=== PATIENT | male | born 1990 | race African-American/Black ===

== ENCOUNTER 2017-01-16 11:36 | Emergency (ER) | payer OTHER ==
[2017-01-16] MEDS ORDERED: ONDANSETRON 4 MG TAB.RAPDIS PO ONE (11:57)
--- NOTE | 2017-01-16 11:59 | ER Document Report ---
ED General - General Chief Complaint: Psych Problem Stated Complaint: NAUSEA Time Seen by Provider: 01/16/17 11:52 Mode of Arrival: Medic Information source: Patient, Law Enforcement Notes: 26-year-old male with history of undiagnosed depression presents with concerns of taking half a bottle of Motrin 200 mg tablets last night around 11 PM. Patient notes he was also drinking last night. Patient admits to hurt himself TRAVEL OUTSIDE OF THE U.S. IN LAST 30 DAYS: No - HPI Onset: Yesterday Onset/Duration: Sudden Quality of pain: No pain Severity: Mild Pain Level: Denies Associated symptoms: Nausea, Vomiting Exacerbated by: Denies Relieved by: Denies Similar symptoms previously: No Recently seen / treated by doctor: No - Related Data Allergies/Adverse Reactions: No Known Allergies Allergy (Verified 01/16/17 11:44) Past Medical History - Social History Smoking Status: Never Smoker Cigarette use (# per day): No Chew tobacco use (# tins/day): No Smoking Education Provided: No Frequency of alcohol use: Occasional Drug Abuse: None Family History: Reviewed & Not Pertinent Patient has suicidal ideation: Yes Patient has homicidal ideation: No Renal/ Medical History: Denies: Hx Peritoneal Dialysis Past Surgical History: Reports: Hx Orthopedic Surgery - Immunizations Hx Diphtheria, Pertussis, Tetanus Vaccination: No Review of Systems - Review of Systems Notes: PHYSICAL EXAMINATION: GENERAL: Well-appearing, well-nourished and in no acute distress. HEAD: Atraumatic, normocephalic. EYES: Pupils equal round and reactive to light, extraocular movements intact, sclera anicteric, conjunctiva are normal. ENT: Nares patent, oropharynx clear without exudates. Moist mucous membranes. NECK: Normal range of motion, supple without lymphadenopathy LUNGS: Breath sounds clear to auscultation bilaterally and equal. No wheezes rales or rhonchi. HEART: Regular rate and rhythm without murmurs ABDOMEN: Soft, nontender, nondistended abdomen. No guarding, no rebound. No masses appreciated. Musculoskeletal: Normal range of motion, no pitting or edema. No cyanosis. NEUROLOGICAL: Cranial nerves grossly intact. Normal speech, normal gait. Normal sensory, motor exams PSYCH: Normal mood, normal affect. SKIN: Warm, Dry, normal turgor, no rashes or lesions noted. Course - Re-evaluation Re-evalutation: 01/16/17 11:59 Patient initially stated was Tylenol, however on evaluation by nurse it appears to be ibuprofen. Lab work is pending none the less Patient will be held for mental health evaluation and is otherwise stable Discharge - Discharge Clinical Impression: Alcohol abuse Drug overdose Qualifiers: Encounter type: initial encounter Injury intent: intentional self-harm Qualified Code(s): T50.902A - Poisoning by unspecified drugs, medicaments and biological substances, intentional self-harm, initial encounter Depression Qualifiers: Depression Type: unspecified Qualified Code(s): F32.9 - Major depressive disorder, single episode, unspecified Condition: Stable Disposition: PSYCH HOSP/UNIT
[2017-01-16 12:44] LABS: HEMATOCRIT 49.4 % (37.9-51.0); HEMOGLOBIN 16.8 g/dL (13.5-17.0); MEAN CORPUSCULAR HEMOGLOBIN 29.8 pg (27.0-33.4); MEAN CORPUSCULAR HGB CONC 34.1 g/dL (32.0-36.0); MEAN CORPUSCULAR VOLUME 88 fl (80-97); RED BLOOD COUNT 5.65 10^6/uL (4.35-5.55); RED CELL DISTRIBUTION WIDTH 12.6 % (11.5-14.0); WHITE BLOOD COUNT 11.5 10^3/uL (4.0-10.5)
[2017-01-16 12:56] LABS: APPEARANCE,URINE CLEAR; BILIRUBIN,URINE NEGATIVE (NEGATIVE); GLUCOSE, URINE NEGATIVE (NEGATIVE); KETONES,URINE TRACE mg/dL (NEGATIVE); LEUKOCYTE ESTERASE,URINE NEGATIVE (NEGATIVE); NITRITE,URINE NEGATIVE (NEGATIVE); PROTEIN,URINE 30 mg/dL (NEGATIVE); URINE SPECIFIC GRAVITY 1.019; UROBILINOGEN,URINE NEGATIVE mg/dL (<2.0)
[2017-01-16 12:57] LABS: ALANINE AMINOTRANSFERASE 36 U/L (21-72); ALBUMIN 4.8 g/dL (3.5-5.0); ALCOHOL < 10 mg/dL (NONE DETECTED); ALKALINE PHOSPHATASE 108 U/L (38-126); ASPARTATE AMINO TRANSFERASE 31 U/L (17-59); BILIRUBIN,DIRECT 0.3 mg/dL (0.0-0.4); BILIRUBIN,TOTAL 0.4 mg/dL (0.2-1.3); BLOOD UREA NITROGEN 12 mg/dL (7-20); CALCIUM 9.9 mg/dL (8.4-10.2); CARBON DIOXIDE 22 mmol/L (22-30); CHLORIDE 103 mmol/L (98-107); CREATININE RESULT 1.66 mg/dL (0.52-1.25); GLUCOSE 126 mg/dL (75-110); POTASSIUM 4.9 mmol/L (3.6-5.0); SODIUM 144.5 mmol/L (137-145); TOTAL PROTEIN 8.6 g/dL (6.3-8.2)
[2017-01-16 12:58] LABS: ANION GAP 20 (5-19)
--- NOTE | 2017-01-16 13:02 | EKG REPORT ---
SEVERITY:- BORDERLINE ECG - SINUS BRADYCARDIA BORDERLINE T ABNORMALITIES, INFERIOR LEADS : Confirmed by: Beth Acosta 16-Jan-2017 13:01:53
[2017-01-16 13:06] LABS: URINE BARBITURATES SCREEN NEGATIVE; URINE METHADONE SCREEN NEGATIVE; URINE OPIATES LOW NEGATIVE; URINE PHENCYCLIDINE SCREEN NEGATIVE
[2017-01-16] MEDS ORDERED: NORMAL SALINE 1000 ML 1,000 ML IV ONE (13:08)
[2017-01-16 13:31] LABS: BAND NEUTROPHILS % (MANUAL) 3 % (3-5); BASOPHILS % (MANUAL) 0 % (0-2); EOSINOPHILS % (MANUAL) 0 % (0-6); LYMPHOCYTES % (MANUAL) 3 % (13-45); TOTAL CELLS COUNTED 100
[2017-01-16 13:32] LABS: RBC MORPHOLOGY COMMENT NORMO-CYTIC/CHROMIC
--- NOTE | 2017-01-16 16:39 | PSYCHOLOGICAL NOTE ---
Psych Note - Psych Note Psych Note: 26-year-old male with history of undiagnosed depression presents with concerns of taking half a bottle of Motrin 200 mg tablets last night around 11 PM. Patient notes he was also drinking last night. Patient admits to hurt himself Patient disclosed that he is from [place] and came down here yesterday to see his friend. He continued disclosed that [facility] [place]. Patient disclosed that he took ibuprofen but does not know the amount. Patient is unable to identify a trigger stating "I was upset about everything." He continued disclosed that he does not talk about his emotions so when something "minor" occurs at all his treatment once. He disclosed that he was arguing with his girlfriend last night. She continue disclosed that after taking the pills he ended up breaking his cell phone. Patient denies any psychiatric history but states that his mother and ex-girlfriend told him he should see a therapist. He discloses "my mom says it's not normal however feeling and I should talk to someone." He continued disclosed that he was going to head back to [place] today. When asked if he still wanted to hurt himself he stated "I don't know..... Probably not.... It's just too much work." Patient is alert and orientated to person, place, time and circumstance. Mood is dysphoric with flat affect. Patient endorses suicidal and homicidal ideation. Patient denies auditory and visual hallucinations; patient is not demonstrating behaviour what would be congruent to responding to internal stimuli. No delusions are noted. Thought process is organized and linear. Eye contact was well maintained. Intellectual abilities appear to be within average range. Attention and concentration is good. Insight, judgment, and impulse control is poor. 311 (32.9) unspecified depressive disorder Impression\\plan: Patient is recommended for IVC. Patient admits to intentionally taking ibuprofen at attempted suicide. Patient is currently in [place] visiting. Patient states that he would "probably not" attempt suicide again because it is "too much work." Patient is demonstrating severe depression and with statement of suicide being too much work there is concern the patient would become actively suicidal once treatment begins for his depression. There is also concern the patient isolated himself from his support network immediately before attempting suicide. Patient is recommended for inpatient treatment. Dr. Ji was consulted on the care and management of this patient; attending physician is in agreement with recommendations and disposition.
--- NOTE | 2017-01-17 10:08 | ER Document Report ---
Doctor's Note Notes: 01/17/17 10:08 Lab work vital signs have been reviewed. At this time patient is currently stable with no overnight events requiring no intervention at this time. Patient stable for transfer or other disposition
[2017-01-17] MEDS ORDERED: CITALOPRAM HYDROBROMIDE 20 MG TABLET PO SCH (14:00)
--- NOTE | 2017-01-17 16:36 | PSYCHOLOGICAL NOTE ---
<ZAIDA LINDSAYBETH - Last Filed: 01/17/17 16:22> Psych Note - Psych Note Psych Note: Patient is a 6 year old male under IVC at [facility] ED. Patient initially presented via [facility] after he was told he could come to the ED or go to snf (possibly due to belligerent behavior at the hotel). Patient initially reported c/o of nausea , secondary to an alleged overdose of otc pills. Patient initially reported motrin, and then reported it was tylenol. Patient today states he did take pills, but cannot recall what he took or how much. 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 Patient states she did not answer the door when he rang the fofana and she instead went upstairs. He states they did text back and forth, but reports she told him she had plans. Patient states no one in his family knows he is here. He states this Clinician does not have permission to call his mother. 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 Patient states he has been suicidal x7 years and has experienced ideations with various plans 3-4 times weekly. Patient states he did not feel rejected by his friend and states he actually did not care. He states he cares about nothing except his family and continues to think that it is odd that he has no interest in anything. He states he does not feel mildred the way others do. He states he was not happy at his college graduation, etc. He states he is up for reinlistement in the [employer], but does not know if he wants to do so. He states he also thinks he may quit his job at the when he returns to [place]. 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 Patient states he just got fed up. Patient is alert and orientated to person, place, time and circumstance. Mood is dysphoric with flat affect. Patient denies SI/HI. Patient denies auditory and visual hallucinations; delusions not noted. Thought process is organized and linear. Eye contact was well maintained. Intellectual abilities appear to be within average range. Attention and concentration is good. Insight, judgment, and impulse control is poor. 311 (32.9) unspecified depressive disorder R/O Substance Use Disorder Patient is recommended to continue under IVC for further observation and evaluation. I consulted with Dr. Ji in regards to the care and management of this patient. 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 <ALVA JI - Last Filed: 01/22/17 11:11> Psych Note - Psych Note Psych Note: First line should state "Patient is a 26 year old male" not a 6 year old male.
--- NOTE | 2017-01-18 12:00 | ER Document Report ---
Doctor's Note Notes: 01/18/17 11:59 Patient is resting comfortably at this time. He has given mental health permission to discuss his care with his mother. She'll be contacted to see if she can pick him up to be safely discharged in her care. Patient has no requests at this time. Medically stable.
--- NOTE | 2017-01-18 14:50 | ER Document Report ---
Addendum entered and electronically signed by REVA LINDSAY LPC 01/18/17 14: 59: ED Psych Disorder / Suicide - General Chief Complaint: Psych Problem Stated Complaint: NAUSEA Time Seen by Provider: 01/16/17 11:52 Mode of Arrival: Medic TRAVEL OUTSIDE OF THE U.S. 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 He states his mother informed him that an officer came to the house and retrieved his service weapon. Patient states he has no access to firearms here in [place] or in [place]. - Related Data Allergies/Adverse Reactions: No Known Allergies Allergy (Verified 01/16/17 11:44) Home Medications: Current Home Medications No Home Medications 01/17/17 [History] Original Note: ED Psych Disorder / Suicide - General Mode of Arrival: Medic Information source: Patient, Parent - mother TRAVEL OUTSIDE OF THE U.S. IN LAST 30 DAYS: No - HPI Patient complains to provider of: Suicidal attempt - pt alleges he overdosed on OTC pills the night before his arrival Onset: Other Onset was: Cannot confirm Suicide Risk Factors: Depressed - per patient, Male, Substance abuse - R/O Situational problems related to: Significant other - possibly regected by female upon arrival to [place] Normal mood: Yes Associated symptoms: Normal affect, Normal mood, Depressed Similar symptoms previously: Yes - pt reports he has felt this way for the past 7 years Recently seen / treated by doctor: No <REVA LINDSAY - Last Filed: 01/18/17 14:58> <ALVA JI - Last Filed: 01/22/17 11:16> - General Chief Complaint: Psych Problem Stated Complaint: NAUSEA Time Seen by Provider: 01/16/17 11:52 - HPI Notes: Patient is a 26 year old male under IVC at [facility] ED. Patient initially presented via [facility] after he was told he could come to the ED or go to nursing home (possibly due to belligerent behavior at the hotel). Patient initially reported c/o of nausea , secondary to an alleged overdose of otc pills. Patient initially reported motrin, and then reported it was tylenol. Patient today denies suicidal ideations. Patient states he feels better and states, "I'm good now." Patient denies access to firearms. Patient states he wants to return to [place], where he has familial supports. Discussed with patient the need to obtain collateral information form his mother. Patient provided verbal consent to call his mother to attempt to coordinate plan of care. Patient's mother, was initially distraught as she did not know he was in the hospital. MOther provided phone number to speak with the patient directly. Later discussed with mother the possibility of discharging the patient if she or another family member were able to present in person. Mother advised they have a flight into [place], and can possibly arrive to the ED around 2100. Mother is agreeable to monitor patient and assist him in returning to [place]. Patient is alert and orientated to person, place, time and circumstance. Mood is euthymic with flat affect. Patient denies SI/HI. Patient denies auditory and visual hallucinations; delusions not noted. Thought process is organized and linear. Eye contact was well maintained. Intellectual abilities appear to be within average range. Attention and concentration is good. Insight, judgment, and impulse control is poor. 311 (32.9) unspecified depressive disorder R/O Substance Use Disorder Patient is psychiatrically cleared to be discharged to his parents upon their arrival. They have agreed to assist and monitor the patient as he returns to [place]. He is encouraged to engage in outpatient counseling. I have consulted with Dr. Ji in regards to the care and management of this patient. (REVA LINDSAY) NOTE: [facility] contacted the Patient's place of employment ([employer]) in [place] and advised the Patient was placed under IVC in [place]. An Individual retrieved the Patient's firearm from his mother's home where he resides. This was confirmed by Sgt. Enriquez at the [facility] [employer] in [place]. Patient was to be discharged only to his parents upon their arrival. (ALVA JI) - Related Data Allergies/Adverse Reactions: No Known Allergies Allergy (Verified 01/16/17 11:44) Past Medical History - General Information source: Patient, Parent, Law Enforcement - Social History Smoking Status: Unknown if Ever Smoked Cigarette use (# per day): No Chew tobacco use (# tins/day): No Frequency of alcohol use: None Drug Abuse: None Family History: Reviewed & Not Pertinent Patient has suicidal ideation: Yes Patient has homicidal ideation: No Renal/ Medical History: Denies: Hx Peritoneal Dialysis Past Surgical History: Reports: Hx Orthopedic Surgery - Immunizations Hx Diphtheria, Pertussis, Tetanus Vaccination: No <REVA LINDSAY - Last Filed: 01/18/17 14:58> Course - Laboratory Result Diagrams: 01/16/17 12:18 01/16/17 12:18 <REVA LINDSAY - Last Filed: 01/18/17 14:58> - Laboratory Result Diagrams: 01/16/17 12:18 01/16/17 12:18 <ALVA JI - Last Filed: 01/22/17 11:16> - Vital Signs Vital signs: Temp Pulse Resp BP Pulse Ox 98.6 F 48 L 16 138/67 H 98 01/19/17 09:39 01/19/17 09:39 01/19/17 09:39 01/19/17 09:39 01/19/17 09:39 - Laboratory Laboratory results interpreted by me: 01/16/17 01/16/17 01/16/17 12:18 12:18 12:18 WBC 11.5 H RBC 5.65 H Seg Neuts % (Manual) 93 H Lymphocytes % (Manual) 3 L Monocytes % (Manual) 1 L Abs Neuts (Manual) 11.0 H Abs Lymphs (Manual) 0.3 L Anion Gap 20 H Creatinine 1.66 H Est GFR (Non-Af Amer) 51 L Glucose 126 H Total Protein 8.6 H Urine Protein 30 H Urine Ketones TRACE H Salicylates < 1.0 L Acetaminophen < 10 L Discharge <REVA LINDSAY - Last Filed: 01/18/17 14:58> <ALVA JI - Last Filed: 01/22/17 11:16> - Discharge Clinical Impression: Alcohol abuse Overdose Qualifiers: Encounter type: initial encounter Injury intent: intentional self-harm Qualified Code(s): T50.902A - Poisoning by unspecified drugs, medicaments and biological substances, intentional self-harm, initial encounter Depression Qualifiers: Depression Type: unspecified Qualified Code(s): F32.9 - Major depressive disorder, single episode, unspecified Condition: Stable Disposition: HOME, SELF-CARE Additional Instructions: Depression Your evaluation reveals that you have mental depression. While symptoms may be vague, they often include disturbance of sleep, fatigue, loss of appetite , and general loss of interest in life. While depression may be a side effect of drugs, or a reaction to a major change in your life, many cases have no known cause. If depression is acute, and related to a major loss in your life, you can expect it to clear completely with time. If you have been depressed a long time , are prone to repeated bouts of depression or low mood, or have been thinking of suicide, get help. Depression can be treated with anti-depressant medication and counselling. Long-term depression will often take a few weeks to clear, even with appropriate medication. Follow-up care is important. Contact your physician, the hospital emergency center, crisis line, or your counsellor if you are losing control or having self-destructive thoughts. Your parent's have flown here to assist you back to [place]. You are strongly encouraged to follow up with an outpatient psychiatric provider for both counseling and medication management. Please return immediately to her local emergency room if your symptoms worsen. Prescriptions: Citalopram Hydrobromide [Celexa 20 mg Tablet] 20 mg PO DAILY #7 tablet Forms: Return to Work
--- NOTE | 2017-01-19 09:25 | ER Document Report ---
Doctor's Note Notes: 01/19/17 09:24 Patient is a 26-year-old male who initially presented with possible suicidal ideation and overdose on ibuprofen. Patient is from [place]. Patient has no history of suicide attempt in the past. Patient has no history of psychiatric disorders other than depression. The psychiatric team here at this facility have seen and evaluated the patient in the last few days. They believe it is safe to discharge the patient home and to the care of his mother who was flying down from [place]. The patient will be traveling back to [place] with family today upon discharge. Patient denies any suicidal ideations at this time. I believe given the history, physical exam, being discharged to the care of his parents, that this is a reasonable option for psychiatry team to pursue. I will follow their expert guidance.
--- NOTE | 2017-01-19 09:38 | ER Document Report ---
ED Psych Disorder / Suicide - General Mode of Arrival: Medic Information source: Patient, Parent TRAVEL OUTSIDE OF THE [place] IN LAST 30 DAYS: No - HPI Patient complains to provider of: Overdose - alleged OTC OD, Suicidal ideation Onset: Just prior to arrival Suicide Risk Factors: Depressed, Frightened friends/family, Substance abuse Normal mood: Yes Associated symptoms: Normal affect, Normal mood, Depressed Similar symptoms previously: Yes - pt reports he has felt this way x7 years Recently seen / treated by doctor: No <REVA LINDSAY - Last Filed: 01/19/17 09:36> <IMTIAZ TIPTON - Last Filed: 01/19/17 09:41> - General Chief Complaint: Psych Problem Stated Complaint: NAUSEA Time Seen by Provider: 01/16/17 11:52 - HPI Notes: Isn't is a 26-year-old male under involuntary commitment at [facility]. Patient presented due to allegedly overdose. Since his arrival, patient has denied ongoing suicidal ideations. A plan of care was arranged with his parents in [place] who flew down and present in person to assume responsibility of patient safely returning home. Yesterday, patient gave this clinician permission and also called directly in my presence to speak with Sgt. Simmons with the [employer] in [place]. Sgt. Simmons did confirm the patient's service weapon was removed after they received a call from law enforcement in [facility]. Patient this morning states he is ready to leave and denies SI/HI. Patient continues to deny access to any other firearms, medications, or means in which he could harm himself. Patient denies any urges to engage in self-harm and is agreeable to allow his parents to assist him home. He states his car is currently parked near his friend's house. He reports his mother and father have a rental car which they will return here in [place], get his vehicle, pick him up and drive back to [place] to gather. Patient denies suicidal/homicidal ideations, intent, plan, means. Patient's mother and father presented bedside and state they are prepared to take the patient home, and assist him in following up. Mother states she is in agreement to monitor patient's medication/prescription. Mother and father both report no other concerns. Patient is alert and orientated to person, place, time and circumstance. Mood is euthymic with flat affect. Patient denies SI/HI. Patient denies auditory and visual hallucinations; delusions not noted. Thought process is organized and linear. Eye contact was well maintained. Intellectual abilities appear to be within average range. Attention and concentration is good. Insight, judgment, and impulse control is poor. 311 (32.9) unspecified depressive disorder R/O Substance Use Disorder Patient is psychiatrically cleared to be discharged to his parents upon their arrival. Patient is recommended for rescind IVC. Parents have agreed to assist and monitor the patient as he returns to [place]. He is encouraged to engage in outpatient counseling. Note, it was confirmed with Sgt. Simmons with the [employer] that the service weapon for [employer] has been removed from his home. Per patient and per his mother he does not have access to firearms. I have consulted with Dr. Ji in regards to the care and management of this patient. (REVA LINDSAY) - Related Data Allergies/Adverse Reactions: No Known Allergies Allergy (Verified 01/16/17 11:44) Home Medications: Current Home Medications No Home Medications 01/17/17 [History] Past Medical History - General Information source: Patient, Parent, Law Enforcement - Social History Smoking Status: Unknown if Ever Smoked Cigarette use (# per day): No Chew tobacco use (# tins/day): No Frequency of alcohol use: Occasional Drug Abuse: None Family History: Reviewed & Not Pertinent Patient has suicidal ideation: No Patient has homicidal ideation: No Renal/ Medical History: Denies: Hx Peritoneal Dialysis Past Surgical History: Reports: Hx Orthopedic Surgery - Immunizations Hx Diphtheria, Pertussis, Tetanus Vaccination: No <REVA LINDSAY - Last Filed: 01/19/17 09:36> Course - Laboratory Result Diagrams: 01/16/17 12:18 01/16/17 12:18 <REVA LINDSAY - Last Filed: 01/19/17 09:36> - Laboratory Result Diagrams: 01/16/17 12:18 01/16/17 12:18 <IMTIAZ TIPTON - Last Filed: 01/19/17 09:41> - Vital Signs Vital signs: Temp Pulse Resp BP Pulse Ox 98.1 F 49 L 16 128/58 H 96 01/19/17 06:48 01/19/17 06:48 01/19/17 06:48 01/19/17 06:48 01/19/17 06:48 - Laboratory Laboratory results interpreted by me: 01/16/17 01/16/17 01/16/17 12:18 12:18 12:18 WBC 11.5 H RBC 5.65 H Seg Neuts % (Manual) 93 H Lymphocytes % (Manual) 3 L Monocytes % (Manual) 1 L Abs Neuts (Manual) 11.0 H Abs Lymphs (Manual) 0.3 L Anion Gap 20 H Creatinine 1.66 H Est GFR (Non-Af Amer) 51 L Glucose 126 H Total Protein 8.6 H Urine Protein 30 H Urine Ketones TRACE H Salicylates < 1.0 L Acetaminophen < 10 L Discharge <REVA LINDSAY - Last Filed: 01/19/17 09:36> <RANJAN TIPTONIAN - Last Filed: 01/19/17 09:41> - Discharge Clinical Impression: Alcohol abuse Overdose Qualifiers: Encounter type: initial encounter Injury intent: intentional self-harm Qualified Code(s): T50.902A - Poisoning by unspecified drugs, medicaments and biological substances, intentional self-harm, initial encounter Depression Qualifiers: Depression Type: unspecified Qualified Code(s): F32.9 - Major depressive disorder, single episode, unspecified Condition: Stable Disposition: HOME, SELF-CARE Additional Instructions: Depression Your evaluation reveals that you have mental depression. While symptoms may be vague, they often include disturbance of sleep, fatigue, loss of appetite , and general loss of interest in life. While depression may be a side effect of drugs, or a reaction to a major change in your life, many cases have no known cause. If depression is acute, and related to a major loss in your life, you can expect it to clear completely with time. If you have been depressed a long time , are prone to repeated bouts of depression or low mood, or have been thinking of suicide, get help. Depression can be treated with anti-depressant medication and counselling. Long-term depression will often take a few weeks to clear, even with appropriate medication. Follow-up care is important. Contact your physician, the hospital emergency center, crisis line, or your counsellor if you are losing control or having self-destructive thoughts. Your parent's have flown here to assist you back to [place]. You are strongly encouraged to follow up with an outpatient psychiatric provider for both counseling and medication management. Please return immediately to her local emergency room if your symptoms worsen.
[2017-01-19 10:04] VITALS: BP 138/67
== END 2017-01-19 10:30 | disposition home or self-care (01) ==
LOC: ER 11:36
DX: T50.902A Poisoning by unspecified drugs, medicaments and biological substances, intentional self-harm, initial encounter (principal); F32.9 Major depressive disorder, single episode, unspecified; R11.0 Nausea; F10.10 Alcohol abuse, uncomplicated
CPT/HCPCS: 93005; 99285; 96360; 36415; 80307 ×4; 85025; 80053; 81001; 93010; J7030